=== PATIENT | female | born 1945 | race Caucasian/White ===

== ENCOUNTER 2024-01-06 14:20 | Emergency (ER) | payer MEDICARE, SELFPAY ==
--- NOTE | ~2024-01-06 | CT_ITS ---
EXAMINATION: CT angio head neck CLINICAL INDICATION: Female, 78 years old, dizziness, confusion TECHNIQUE: A noncontrast axial CT scan of the head was obtained. Axial CT angiogram of the head and neck was performed with contrast. Multiplanar reformations as well as 3-D volume rendered imaging were reviewed at the workstation. Degree of stenosis was measured utilizing the NASCET method. This exam was performed according to our departmental dose-optimization program which includes automated exposure control, adjustment of the mA and/or kV according to patient size and/or use of iterative reconstruction technique. MIP reformats were obtained per protocol. COMPARISON: None CT HEAD: There is no evidence of acute intracranial hemorrhage or territorial infarction. There is no loss of bruce to white matter differentiation. No abnormal mass effect or midline shift is seen. No extra-axial fluid collections are identified. There is no abnormal enhancement. No hydrocephalus. Proportional prominence of the ventricles and sulcal spaces is consistent with mild volume loss. Patchy periventricular and deep white matter hypoattenuation is consistent with moderate small vessel ischemic changes. The cerebellar tonsils are well positioned. No acute osseous or soft tissue abnormality. The mastoid air cells and visualized portions of the paranasal sinuses are well aerated. CTA HEAD: ICA: Angiographic images of the [place] demonstrates patent petrous, cavernous, and supraclinoid internal carotid arteries. Scattered atherosclerotic wall calcifications in the cavernous portions of the bilateral internal carotid arteries without significant stenosis ICA Bifurcations: The ICA and MCA bifurcations are unremarkable. MCA: The MCA are patent bilaterally without evidence for hemodynamically significant stenosis. ZOILA: The ZOILA are patent bilaterally without evidence for hemodynamically significant stenosis. Vertebrobasilar: The intradural vertebral arteries are patent. The basilar artery demonstrates no evidence for hemodynamically significant stenosis. RICE MILLING SUPERVISOR:The RICE MILLING SUPERVISOR are patent bilaterally without evidence for hemodynamically significant stenosis. Aneurysm, Arteriovenous Malformation, or AV Fistula: None. CTA NECK: Aortic Arch and Great Vessel Origins: Widely patent. Scattered calcified plaque in the aortic arch. Subclavian Arteries: Widely patent. Right Common Carotid Artery: Irregular calcified plaque at the carotid bulb with mild less than 50% stenosis Right Internal Carotid Artery: Calcified plaque extends into the proximal internal carotid artery with less than 50% stenosis. Remaining portions of the cervical internal carotid artery are normal in caliber and widely patent. Left Common Carotid Artery: Minimal calcified plaque at the carotid bulb, widely patent Left Internal Carotid Artery: Widely patent. Right Vertebral Artery: Widely patent. Left Vertebral Artery: Widely patent. Dural Venous Sinuses: No evidence of thrombosis or occlusion. Neck Soft Tissues: Negative. CT/CT angio head neck IMPRESSION: 1. No acute intracranial process. 2. Mild atherosclerotic plaque in the bilateral carotid bulbs and proximal internal carotid arteries with less than 50% stenosis. 3. Chronic microvascular ischemic changes Electronically signed by: Ankush Mcdonnell MD 01/06/2024 09:22 PM EST
--- NOTE | 2024-01-06 14:33 | PC.NURSE ---
Awaiting hse specialist for triage at this time
[2024-01-06 14:39] VITALS: BP 163/79; PULSE 70; RESP 18; TEMP 36.8; O2SAT 98; BMI 21.5
--- NOTE | 2024-01-06 14:48 | ECG_ITS ---
Test Reason : dizziness Blood Pressure : / mmHG Vent. Rate : 058 BPM Atrial Rate : 058 BPM P-R Int : 150 ms QRS Dur : 090 ms QT Int : 436 ms P-R-T Axes : 043 013 089 degrees QTc Int : 428 ms Sinus bradycardia Nonspecific ST and T wave abnormality Abnormal ECG No previous ECGs available Referred By: Generic ED Physician Electronically Signed By:ROBERT HALL MD
[2024-01-06 15:29] LABS: MANUAL DIFF FLAG NO
[2024-01-06 15:31] LABS: Basophils Absolute Auto 0.1 X10*3/uL (0.0-0.2); Basophils Percent Auto 1.1 % (0-2); Eosinophils Absolute Auto 0.1 X10*3/uL (0.0-0.4); Eosinophils Percent Auto 1.7 % (0-4); Hematocrit 40.8 % (37.0-47.0); Hemoglobin 13.4 g/dl (12.0-16.0); Imm Gran Abs Auto 0.03 X10*3/uL (0.00-0.03); Imm Gran Pct Auto 0.5 % (0.0-0.4); Lymphocytes Absolute Auto 1.8 X10*3/uL (1.2-4.9); Lymphocytes Percent Auto 27.4 % (20-40); Mean Corpuscular HGB Conc 32.8 g/dl (31.0-35.0); Mean Corpuscular Hemoglobin 29.3 pg (27.0-33.0); Mean Corpuscular Volume 89.1 fL (80.0-98.0); Mean Platelet Volume 10.9 fL (9.4-12.3); Monocytes Absolute Auto 0.6 X10*3/uL (0.1-1.2); Monocytes Percent Auto 8.9 % (2-11); Neutrophils Absolute Auto 3.9 x10*3/uL (2.0-8.3); Neutrophils Percent Auto 60.4 % (45-73); Platelet Count 162 X10*3/uL (160-400); Red Blood Count 4.58 X10*6/uL (4.20-5.50); Red Cell Distribution Width 12.9 % (11.0-16.0); White Blood Count 6.5 X10*3/uL (4.8-10.8)
[2024-01-06 15:45] LABS: Anion Gap 14 (12-20); Blood Urea Nitrogen 16 mg/dL (9-16); Calcium 10.2 mg/dL (8.4-10.2); Carbon Dioxide 28 mmol/L (22-29); Chloride 100 mmol/L (96-108); Estimated Glomerular Filt Rate > 60; Glucose Random 100 mg/dL (60-115); Sodium 138 mmol/L (135-145)
[2024-01-06 15:54] LABS: Troponin-I High Sensitivity 4.2 ng/L (<3.5-17.0)
--- NOTE | 2024-01-06 16:27 | ED_ITS ---
HPI - General Adult General Chief complaint: Dizziness Stated complaint: dizzy Time Seen by Provider: 01/06/24 16:18 Source: patient Limitations: no limitations History of Present Illness HPI narrative: Patient is a 78-year-old female reported history of cardiac bypass in 2017, during initial nursing triage reported a history of vertigo and symptoms have been well controlled over the past month until this morning, though patient does not provide me a clear history of this. She is Presenting to the emergency department for evaluation of dizziness, reportedly with onset at 09:00 this morning, appeared to be a brief episode where she felt off balance, lasted approximately 5 minutes before self-resolving. Currently she is without dizziness. She offers no physical complaints at this time. Reportedly she moved from [place] on Tuesday she is residing here with her son. Her son is not present at bedside at the time of my evaluation, evidently he went home to make her something to eat as she was feeling hungry. It is difficult to obtain a clear history from her, at times she responds to questions with inappropriate responses. She reported to the full time staff interpreter that her son scolded her for answering questions earlier and wants her to allow him to answer the questions. The onset was _. It has lasted _, and is constant / intermittent. Does not have / Has a history of similar occurring in the past. Described as _. feeling as though the room is spinning. feeling as though things are moving. feeling as though about to pass out. ? Dizziness/ lightheadedness is / is not made worse by position change from lying / sitting / standing. Dizziness/ lightheadedness is / is not made worse by movement of head. It improves with_. Denies fevers, chills, falls, head trauma, pre-syncope, syncope, headache, vision changes, hearing changes, ringing of the ears, nausea, vomiting, palpitations, shortness of breath, exercise intolerance, or pedal edema. Related Data Allergies Allergy/AdvReac Type Severity Reaction Status Date / Time No Known Allergies Allergy Verified 01/06/24 14:45 Review of Systems 2 Review of Systems: Yes all other systems are reviewed and are negative [facility] Social History Social History Smoked in Last 30 Days: No Advance Directives: No Advance Directives Information Provided: No Do you have a plan to hurt others: No Plan Physical Exam ED Vital Signs: Vital Signs - 24 hr 01/06/24 14:39 01/06/24 20:03 01/06/24 21:14 Temperature 98.3 F 98.1 F Pulse Rate 70 54 Respiratory Rate 18 14 Blood Pressure 163/79 H 136/53 L Pulse Oximetry 98 97 Oxygen Delivery Method Room Air Room Air Oxygen Flow Rate 2 01/06/24 22:35 Temperature 98.3 F Pulse Rate 63 Respiratory Rate 15 Blood Pressure 144/70 H Pulse Oximetry 97 Oxygen Delivery Method Room Air Oxygen Flow Rate BMI result Body Mass Index 21.5 Appearance: Alert.?Oriented to person, place and time. No acute distress.?Normal affect. Head: Normocephalic, atraumatic. No head, sinus or TMJ tenderness.? Eyes: Sclera white, conjunctiva pink. PERRL, 3 mm bilaterally. Visual velazquez full to confrontation, EOMi.?No Nystagmus. Ears: Bilateral ear canals clear, TM visible with good cone of light.? Nose: Nasal mucosa pink and moist with midline septum, nares patent bilaterally.? Mouth/ Throat: Oral mucosa pink and moist without lesions. Pharynx normal Neck: Normal inspection.? Neck supple.?? CVS: Heart sounds normal. Normal heart rate and rhythm.? Pulses normal.?? Respiratory: No respiratory distress.? Lung sounds clear to auscultation bilaterally?? Abdomen: Soft and non-tender. Normoactive bowel sounds. No pulsatile mass.?? Skin: Skin warm and dry.? Normal skin color.? Normal skin turgor.?? Extremities: No lower extremity edema. Neuro: No focal neurological deficit observed, CN II-XII intact, normal sensory observed, normal coordination observed. Level of consciousness: Appropriate for age. Motor strength: right upper extremity 5 /5, left upper extremity 5 /5, right lower extremity 5 /5, left lower extremity 5 /5.?Speech: Normal, Gait: Normal, Nksmuc-hw-whbv test: Normal, Ceyh-fq-kkem test: Normal. Ambulates with normal steady gait. Course Reevaluation(s) Reevaluation #1: Unfortunately I am unable to make contact with her son. Patient is not aware of the cell phone number of her son. She has a cell phone present but she states that the phone number is not in there. She has placed a call to her and hopes that he will return a call to provide the phone number for her son. At this time she tells me that she is only here for 2 weeks visiting her son and then will be returning back to [place]. I have discovered at this time that she had her medications in her personal belongings, she is prescribed glimepiride, HCTZ 25 mg daily, Plavix 75 mg daily, atorvastatin 40 mg daily, losartan 100 mg daily, and meclizine 25 mg daily. It is unclear to me whether her confusion is baseline or if this is a new finding, this coupled with her episode of dizziness today, plan to obtain CT angio head and neck for further evaluation. Time: 17:01 Reevaluation #2: Patient's son is now at bedside, he reports that at times she does have memory loss and can be a bit confused but seems as though this has been slightly worse lately. Although of note, he has not seen her in a couple of years since she was in [place]. He reports that he was concerned that not only where she experiencing dizziness which apparently is pretty usual for her, she appeared to be swaying to the left side every time that she is standing up and initiating ambulation. He first noticed this a few days ago. Today he felt it was worse which prompted him bringing her to the emergency department. He is unclear what workup she has had done in [place], is not certain whether she has ever had any radiographic imaging of the brain. Time: 19:29 Reevaluation #3: Patient signed out to attending Dr. Ward, pending CT angio head and neck. Time: 20:44 Additional Reevaluation(s): This patient was signed out to me by the physician tourist information assistant pending the results of the CT angiogram of the head and neck. The CT showed no acute intracranial process. There were signs of chronic microvascular ischemic changes. The angiogram showed mild atherosclerotic plaque in the bilateral carotid bulbs and proximal internal carotid arteries with less than 50% stenosis. With regard to the posterior circulation both vertebral arteries were widely patent. The vertebrobasilar artery is patent. The basilar artery demonstrates no evidence for hemodynamically significant stenosis. The posterior cerebral arteries are patent bilaterally without evidence for hemodynamically significant stenosis. The patient's EKG shows sinus bradycardia. The patient's 1st blood pressure was mildly elevated. Subsequent blood pressure was 144/70. The patient has a history of coronary disease and prior cardiac surgery. She is on 75 mg of clopidogrel daily. At the time my exam she had no apparent neurological deficits. She had a steady gait. I evaluated her gait with her son who confirmed that her gait currently seems to be stable and normal. As far as I can tell the patient has had intermittent episodes of seeming briefly unsteady on her feet. The patient attributes this to a problem with her knees. My overall impression is that there is no objective evidence of a stroke at the moment and the patient's gait seems very steady. I do not see an indication for hospitalization for further evaluation at this time. The patient will be advised to make sure that she takes her clopidogrel daily. The son says he will make sure that this happens. She will be in this area for about 2 more weeks before she returns to [place]. She has a PCP in [place]. She is encouraged to follow up with her PCP as soon as she returns to [place] or return to the emergency room here if worse before then. Medications Administered Discontinued Medications Generic Name Dose Route Start Last Admin Trade Name Freq PRN Reason Stop Dose Admin Iohexol 100 ml 01/06/24 20:45 01/06/24 20:46 Iohexol 350 Mg/Ml 100 Ml Infus..Btl IV 01/06/24 20:46 70 ml ONCE ONE Administration Medical Decision Making Medical Decision Making [facility] Narrative: Patient is a 78-year-old female with past medical history of hypertension, diabetes, presumably vertigo, cardiac bypass presenting to emergency department for evaluation of an episode of dizziness earlier today which appears to have resolved. She has a very poor historian. Neuro exam with no abnormal findings, no focal neuro deficits, no spontaneous or gaze evoked nystagmus, no ataxia, no diplopia, dysarthria, dysphagia, dysphonia, dysmetria. Will obtain CBC to evaluate for leukocytosis/ anemia, CMP to evaluate for abnormal electrolytes /abnormal renal function/ abnormal hepatic function, EKG and troponin to evaluate for ischemia/ACS. Differential Diagnosis Differential Diagnoses: The differential diagnosis associated with the presentation includes (See narrative above and course narrative for further detail) Admission/Observation Consideration of admission/observation: Escalation of care including admission/observation considered Lab Data MDM Lab Attestation statement: I reviewed the patient's lab results. CBC is without leukocytosis anemia or thrombocytopenia. No electrolyte derangement. No ABIGAIL. High sensitive troponin is within normal range. 01/06/24 15:24 01/06/24 15:24 Labs: Lab Results 01/06/24 Range/Units 15:24 WBC 6.5 (4.8-10.8) X10*3/uL RBC 4.58 (4.20-5.50) X10*6/uL Hgb 13.4 (12.0-16.0) g/dl Hct 40.8 (37.0-47.0) % MCV 89.1 (80.0-98.0) fL MCH 29.3 (27.0-33.0) pg MCHC 32.8 (31.0-35.0) g/dl RDW 12.9 (11.0-16.0) % Plt Count 162 (160-400) X10*3/uL MPV 10.9 (9.4-12.3) fL Immature Gran % (Auto) 0.5 H (0.0-0.4) % Neut % (Auto) 60.4 (45-73) % Lymph % (Auto) 27.4 (20-40) % Harvey % (Auto) 8.9 (2-11) % Eos % (Auto) 1.7 (0-4) % Baso % (Auto) 1.1 (0-2) % Lymph # (Auto) 1.8 (1.2-4.9) X10*3/uL Harvey # (Auto) 0.6 (0.1-1.2) X10*3/uL Eos # (Auto) 0.1 (0.0-0.4) X10*3/uL Baso # (Auto) 0.1 (0.0-0.2) X10*3/uL Abs Immat Gran (auto) 0.03 (0.00-0.03) X10*3/uL Absolute Neuts (auto) 3.9 (2.0-8.3) x10*3/uL Absolute Nucleated RBC 0.000 (0.0-0.012) X10*3/uL Nucleated RBC % (auto) 0.0 (0.0-0.2) /100WBC Sodium 138 (135-145) mmol/L Potassium 4.0 (3.3-5.1) mmol/L Chloride 100 (96-108) mmol/L Carbon Dioxide 28 (22-29) mmol/L Anion Gap 14 (12-20) BUN 16 (9-16) mg/dL Creatinine 0.86 (0.5-1.4) mg/dL Estim Creat Clear Calc 48.0 Estimated GFR > 60 Random Glucose 100 (60-115) mg/dL Calcium 10.2 (8.4-10.2) mg/dL Troponin I High Sens 4.2 (<3.5-17.0) ng/L Independent Interpretation I performed an independent interpretation of an: EKG Interpretation: Rate: 58 Rhythm: Sinus bradycardia? Normal P waves.? Normal REBEKA.?? Normal QRS complex.?? ST T wave :??No ST elevation, no ST depression qTC: 428 prior studies:? No prior available for review The study has been interpreted contemporaneously by me. Radiology Impression Discussion of test interpretation with radiology: I have reviewed the radiologist's reading. Discharge Plan Discharge Clinical Impression: Dizziness Patient Disposition: Home, Self-Care Additional Instructions: The testing to look at your blood vessels seems reassuring. Please continue your regular medications and take them as prescribed. Please plan on following up with your regular doctor when you return to [place] to discuss these symptoms further. If at any point you were significantly worse before then please return to the emergency department for additional evaluation here. Interventions: ED Discharge Assessment Last Done: 01/06/24 22:35 Print Language: Urdu
[2024-01-06 20:03] VITALS: BP 136/53; PULSE 54; RESP 14; TEMP 36.7; O2SAT 97
[2024-01-06] MEDS: iohexoL 350 MG/ML 100 ML INFUS..BTL IV (20:46)
[2024-01-06 22:35] VITALS: BP 144/70; PULSE 63; RESP 15; TEMP 36.8; O2SAT 97
== END 2024-01-06 22:36 | disposition home or self-care (01) ==
PROVIDERS: Emergency Provider Emergency Medicine
DX: R42 Dizziness and giddiness (principal); R41.0 Disorientation, unspecified; R00.1 Bradycardia, unspecified; Z79.899 Other long term (current) drug therapy
CPT/HCPCS: 36415; 70496; 70498; 80048; 84484; 85025; 93005; 99284; 99285; Q9967

== ENCOUNTER → 2024-01-06 14:48 | Outpatient (BNV) | payer MEDICARE, SELFPAY | PROVIDERS: Emergency Provider Emergency Medicine; Visit Provider Internal Medicine Cardiovascular Disease | DX: R94.31 Abnormal electrocardiogram [ECG] [EKG] (principal) | CPT/HCPCS: 93010 ==